=== PATIENT | female | born 1970 | race Caucasian/White ===

== ENCOUNTER 2017-08-04 11:21 | Inpatient (IN) | payer MEDICAID ==
[~2017-08-04] VITALS: Ht 157.5 cm; Wt 54.0 kg
[2017-08-04 11:31] VITALS: Ht 157.5 cm; Wt 54.0 kg
[2017-08-04 12:28] LABS: UA SPECIFIC GRAVITY <=1.005 (1.005-1.035); microscopic required? YES; urine erythrocyte 3+ (NEGATIVE)
[2017-08-04 12:45] LABS: PLATELET COUNT 402 x10^3mcL (130-400); RED CELL DISTRIBUTION WIDTH 20.6 % (11.5-14.5)
[2017-08-04 12:52] LABS: ALBUMIN 3.7 g/dL (3.4-5.0); BILIRUBIN DIRECT 0.09 mg/dL (0.0-0.2); BILIRUBIN TOTAL 0.3 mg/dL (0.20-1.00); TOTAL PROTEIN, SERUM 6.9 g/dL (6.4-8.2)
[2017-08-04 13:14] LABS: MONOCYTE 2 % (0-7); SEGMENTED NEUTROPHILS 71 % (37-75); rbc morphology (normal/abnorm) ABNORMAL (NORMAL)
[2017-08-04 13:15] LABS: ovalocyte/elliptocyte 1+; schistocyte (helmet cell) 1+
[2017-08-04 15:07] LABS: T3 TOTAL 0.99 ng/mL
[2017-08-04 15:08] LABS: AMPHETAMINE QUAL UR NONE DETECTED (NEG <=1000)
[2017-08-04 15:24] LABS: RED BLOOD CELLS 4.08 M/mm3 (4.10-5.10)
[2017-08-04 15:27] VITALS: BP 120/40
[2017-08-04 15:35] LABS: FREE T4 1.06 ng/dL (0.76-1.46); FREE THYROXINE INDEX 2.3 ug/dL (1.4-4.5)
[2017-08-04 15:36] LABS: TOTAL IRON BINDING CAPACITY 436 ug/dL (250-450)
[2017-08-04 15:37] LABS: IRON 6 ug/dL (50-170)
[2017-08-04 16:26] LABS: CHOLESTEROL/HDL RATIO 2.4; MAGNESIUM 2.2 mg/dL (1.8-2.4); PHOSPHOROUS 3.7 mg/dL (2.5-4.9)
[2017-08-04 17:15] VITALS: BP 92/42
[2017-08-04 20:35] VITALS: BP 113/57
[2017-08-04 20:46] LABS: PLATELET COUNT 323 x10^3mcL (130-400)
[2017-08-04 20:53] LABS: RED CELL DISTRIBUTION WIDTH 32.2 % (11.5-14.5)
[2017-08-04 21:11] LABS: BAND NEUTROPHIL 1 % (0-10); BASOPHIL 0 % (0-2); MONOCYTE 5 % (0-7); SEGMENTED NEUTROPHILS 57 % (37-75)
[2017-08-04 21:13] LABS: rbc morphology (normal/abnorm) ABNORMAL (NORMAL)
[2017-08-04 21:14] LABS: burr cell (echinocyte) 1+; ovalocyte/elliptocyte 1+
[2017-08-04 21:16] LABS: PLATELET MORPHOLOGY LARGE PLATELET SEEN
[2017-08-05] VITALS (11 sets, daily range): BP systolic 89–101; BP diastolic 34–47
[2017-08-05 06:38] LABS: CALCIUM 7.6 mg/dL (8.5-10.1); CARBON DIOXIDE 24.7 mmol/L (21-32); CHLORIDE SERUM 108 mmol/L (98-107); CREATININE SERUM 0.5 mg/dL (0.6-1.0); GFR1 > 60 mL/min; GLUCOSE SERUM 81 mg/dL (74-106); POTASSIUM SERUM 3.5 mmol/L (3.5-5.1); SODIUM SERUM 140 mmol/L (136-145)
[2017-08-05 06:43] LABS: PLATELET COUNT 299 x10^3mcL (130-400)
[2017-08-05 07:57] LABS: RED CELL DISTRIBUTION WIDTH 30.6 % (11.5-14.5)
[2017-08-05 10:24] LABS: rbc morphology (normal/abnorm) ABNORMAL (NORMAL)
[2017-08-05 14:56] LABS: CALCIUM 7.8 mg/dL (8.5-10.1); CARBON DIOXIDE 25.3 mmol/L (21-32); CHLORIDE SERUM 108 mmol/L (98-107); CREATININE SERUM 0.6 mg/dL (0.6-1.0); GFR1 > 60 mL/min; GLUCOSE SERUM 81 mg/dL (74-106); POTASSIUM SERUM 3.5 mmol/L (3.5-5.1); SODIUM SERUM 140 mmol/L (136-145)
[2017-08-05 20:45] LABS: PLATELET COUNT 345 x10^3mcL (130-400)
[2017-08-05 21:32] LABS: RED CELL DISTRIBUTION WIDTH 30.9 % (11.5-14.5)
[2017-08-05 21:51] LABS: BAND NEUTROPHIL 2 % (0-10); MONOCYTE 6 % (0-7); SEGMENTED NEUTROPHILS 66 % (37-75)
[2017-08-05 21:53] LABS: ovalocyte/elliptocyte 1+; rbc morphology (normal/abnorm) ABNORMAL (NORMAL); schistocyte (helmet cell) 1+
[2017-08-05 21:54] LABS: PLATELET MORPHOLOGY PLATELETS NORMAL
[2017-08-06 05:44] VITALS: BP 102/33
[2017-08-06 06:15] LABS: CALCIUM 8.1 mg/dL (8.5-10.1); CHLORIDE SERUM 109 mmol/L (98-107); CREATININE SERUM 0.5 mg/dL (0.6-1.0); GFR1 > 60 mL/min; GLUCOSE SERUM 105 mg/dL (74-106); POTASSIUM SERUM 4.2 mmol/L (3.5-5.1); SODIUM SERUM 141 mmol/L (136-145)
[2017-08-06 07:36] LABS: PLATELET COUNT 323 x10^3mcL (130-400)
[2017-08-06 07:38] LABS: RED CELL DISTRIBUTION WIDTH 30.9 % (11.5-14.5)
[2017-08-06] MEDS ORDERED: VITC PO (09:33)
[2017-08-06] MEDS ORDERED: FER300 PO (09:33)
[2017-08-06] MEDS ORDERED: LAC PO (09:33)
[2017-08-06] MEDS ORDERED: IBUPROFEN400 MG PO (09:34)
[2017-08-06] MEDS ORDERED: BACTRIM DS1 TAB PO (09:34)
[2017-08-06 09:36] VITALS: BP 106/59
[2017-08-06 11:27] VITALS: BP 106/59
[2017-08-06 11:43] LABS: BAND NEUTROPHIL 0 % (0-10); BASOPHIL 0 % (0-2); MONOCYTE 3 % (0-7); SEGMENTED NEUTROPHILS 93 % (37-75); rbc morphology (normal/abnorm) ABNORMAL (NORMAL)
[2017-08-06 11:46] LABS: burr cell (echinocyte) 1+; ovalocyte/elliptocyte 2+; schistocyte (helmet cell) 1+; target cell (codocyte) 1+
[2017-08-06 11:47] LABS: acanthocyte (spur cell) 1+
== END 2017-08-06 15:15 | disposition home or self-care (01) | DRG 519 ==
LOC: ED 11:21 → MU 14:26 → DU 14:26 → MU 08-05 14:58
PROVIDERS: Emergency Medicine Emergency Medical Services; Family Medicine
PROC: 30233N1 Transfusion of Nonautologous Red Blood Cells into Peripheral Vein, Percutaneous Approach (ICD-10-PCS; principal; 2017-08-04)
PROC: 0UB97ZZ Excision of Uterus, Via Natural or Artificial Opening (ICD-10-PCS; 2017-08-05)
PROC: 0UDB7ZX Extraction of Endometrium, Via Natural or Artificial Opening, Diagnostic (ICD-10-PCS; 2017-08-05)
DX: D25.9 Leiomyoma of uterus, unspecified (principal); N30.90 Cystitis, unspecified without hematuria; N83.202 Unspecified ovarian cyst, left side; D50.0 Iron deficiency anemia secondary to blood loss (chronic); D26.9 Other benign neoplasm of uterus, unspecified; N93.8 Other specified abnormal uterine and vaginal bleeding
CPT/HCPCS: 83880; 84439; C1758; J0696; J2405; J2704; J2916; J3010; J7030; J7050; J7120; P9016; Q0092

== ENCOUNTER 2017-11-11 17:17 | Emergency (ER) | payer SELFPAY ==
[~2017-11-11] VITALS: Ht 157.5 cm; Wt 56.7 kg
[~2017-11-11 17:17] MED LIST: BACTRIM DS1 TAB PO; FER300 PO; IBUPROFEN400 MG PO; LAC PO; VITC PO
[2017-11-11 17:40] VITALS: Ht 157.5 cm; Wt 56.7 kg
[2017-11-11 19:33] VITALS: BP 120/73
== END 2017-11-11 19:33 | disposition home or self-care (01) ==
LOC: ED 17:17
DX: L50.8 Other urticaria (principal)
CPT/HCPCS: J7512; Q0163